=== PATIENT | male | born 1990 | race Caucasian/White ===

== ENCOUNTER 2016-10-22 14:32 | Emergency (ER) | payer OTHER ==
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
--- NOTE | 2016-10-22 16:05 | CR ---
EXAMINATION: PA chest and right ribs. HISTORY: Pain. FINDINGS: The trachea is midline. The cardiomediastinal silhouette is within normal limits. No pulmonary infil trates, effusions or pneumothorax. Osseous structures appear unremarkable. No displaced rib fracture identified. The clavicles appear i ntact. IMPRESSION: No acute cardiopulmonary process.
[2016-10-22 16:27] VITALS: BP 131/86
== END 2016-10-22 16:13 | disposition home or self-care (01) ==
LOC: MW.ED 14:32
DX: S20.211A Contusion of right front wall of thorax, initial encounter (principal); V29.9XXA Motorcycle rider (driver) (passenger) injured in unspecified traffic accident, initial encounter
CPT/HCPCS: 71101-26-RT; 71101-RT; 99283